=== PATIENT | male | born 1935 | race Caucasian/White ===

== ENCOUNTER 2022-05-09 12:45 | Emergency (ER) | payer MEDICARE ==
[~2022-05-09] VITALS: Wt 72.7 kg
[2022-05-09 12:46] VITALS: TEMP 98
[2022-05-09 13:11] LABS: MEAN CELL VOLUME 94 fl (80.0-100.0); MEAN CORPUSCULAR HGB CONC 33 g/dl (33.0-37.0); MEAN PLATELET VOLUME 10.2 fl (7.4-10.4); PLATELET COUNT 124 K/mm3 (130-400); RED BLOOD COUNT 2.91 M/mm3 (4.20-5.60)
[2022-05-09 13:19] LABS: INR 7.2 (0.8-3.0); PROTHROMBIN TIME 83.9 SECONDS (9.7-12.8)
[2022-05-09 13:20] LABS: HEMATOCRIT 27.4 % (42.0-52.0); MEAN CORPUSCULAR HEMOGLOBIN 31 pg (27-31)
[2022-05-09 13:25] LABS: ALBUMIN 3.7 gm/dL (3.4-4.8); BILIRUBIN,TOTAL 0.4 mg/dL (0.2-1.2); CALCIUM 8.3 mg/dL (8.4-10.2); CREATININE, serum 6.37 mg/dL (0.72-1.25); TOTAL PROTEIN 6.3 gm/dL (6.2-8.1)
[2022-05-09 13:35] LABS: POTASSIUM 7.6 mmol/L (3.5-4.5); TROPONIN-I 0.161 ng/mL (0.00-0.033)
[2022-05-09 13:45] LABS: TSH w REFLEX 1.993 uIU/mL (0.350-4.940)
[2022-05-09 14:10] LABS: NEUTROPHILS 17 % (42.0-75.2)
[2022-05-09 14:14] LABS: ANISOCYTOSIS 1+; HYPOCHROMIA 1+; OVALOCYTES 1+
[2022-05-09 14:16] LABS: LYMPHOCYTE 76 % (20.0-51.0)
[2022-05-09 14:29] LABS: COLLECTION METHOD CLEAN CATCH
[2022-05-09 14:43] LABS: URINE APPEARANCE Clear (CLEAR/HAZY); URINE COLOR Yellow (YELLOW)
[2022-05-09 14:44] LABS: URINE BLOOD Negative (NEGATIVE); URINE GLUCOSE Negative (NEGATIVE); URINE KETONE TRACE (NEGATIVE); URINE NITRATE Negative (NEGATIVE); URINE PROTEIN(semi-quant) 2+ (NEGATIVE); URINE UROBILINOGEN 0.2 E.U/dL (0.2-1.0)
[2022-05-09 14:50] LABS: MUCOUS Present (NOT PRESENT); SQUAMOUS EPITHELIAL None Seen /hpf (0-10); URINE BACTERIA Rare /hpf (NONE SEEN); URINE RBC 0-2 /hpf (0-2)
[2022-05-09 15:49] VITALS: BP 94/48; PULSE 64
[2022-05-10 08:05] LABS: PATHOLOGY DIFF REVIEW OK +
== END 2022-05-09 15:49 | disposition short-term general hospital (02) ==
LOC: COL.ER 12:45
PROVIDERS: Emergency Medicine
DX: N17.9 Acute kidney failure, unspecified (principal); E87.2 Acidosis; E87.5 Hyperkalemia; R77.8 Other specified abnormalities of plasma proteins; R79.1 Abnormal coagulation profile; I48.91 Unspecified atrial fibrillation; I25.10 Atherosclerotic heart disease of native coronary artery without angina pectoris; Z28.311 Partially vaccinated for COVID-19; Z79.01 Long term (current) use of anticoagulants
CPT/HCPCS: J0610; J1815